=== PATIENT | male | born 1980 | race Caucasian/White ===

== ENCOUNTER 2018-05-01 21:50 | Emergency (ER) | payer MEDICAID, SELFPAY ==
[2018-05-01 21:51] VITALS: BP 139/90; PULSE 84; RESP 16; TEMP 36.6; O2SAT 97; BMI 22.4
--- NOTE | 2018-05-01 22:26 | ED.DCSUM_ITS ---
- ER Visit Summary Date of Service: 05/01/18 Chief Complaint: Depression and anxiety History of Present Illness: The patient is a 38 M with no primary care physician , counselor, or psychiatrist. He reports that he felt depressed and anxious over the course the past 3 weeks. States that he feels like people are watching and following him. He reports that he has had this previously multiple times in the past, but he has been always been able just to ignore it. He denies any auditory or visual hallucinations. No suicidal homicidal ideation. Review of systems: General: No fever, chills, cold sweats. Cardiovascular: No chest pain, palpitations. Respiratory: No cough, shortness of breath, dyspnea on exertion. Gastrointestinal: No abdominal pain, nausea, vomiting, diarrhea, melena, or hematochezia. Genitourinary: No dysuria, frequency, hematuria. Skin: No rash. Neuro: No headache, numbness, weakness. Physical Examination: Vitals: Stable. Afebrile. General: Well-nourished and well-developed. Head: Normocephalic atraumatic. Neck: Supple, no lymphadenopathy. No JVD. Nontender. Cardiovascular: Regular rate and rhythm. No murmurs. Respiratory: No respiratory distress. Clear to auscultation bilaterally. Abdominal: Soft, nontender, nondistended, normal bowel sounds. No guarding, rebound, or peritoneal signs. Back: Nontender. Extremities: Nontender, no edema. Skin: Normal color, no rash. Neurologic: Alert and oriented ?3. Cranial nerves II through XII are intact. Normal strength and sensation. Mental status exam: Patient appears their stated age. Good posture and grooming. Good eye contact. Normal rate, volume, and latency of speech. No suicidal or homicidal ideation. No auditory or visual hallucinations. Flow of thought is logical. Insight and judgment is fair. Emergency Department Course and Treatment: There is no indication for hospitalization. I discussed the patient following up with the counseling center. He did not want me to call and set up an appointment for him. Treatment Plan: Patient will be discharged prescription for Paxil. Instructed to contact the counseling center in follow-up for further evaluation and treatment. Return to emerge department for any thoughts of harming himself or others. Disposition: To home in improved and stable condition. Impression: 1. Depression. 2. Anxiety. This note was generated with [employer] dictation software. It may contain incorrect words, spelling, and punctuation that were not noted in review of the chart prior to signing ED Disposition - Plan for ED Patient: Disposition: Home or Assisted Living Chief Complaint: Anxiety Instructions: ED Depression Prescriptions: Paroxetine HCl [Paxil] 20 mg PO DAILY #30 tablet Referrals: Counseling,Center [GROUP OF PHYSICIANS] - As soon as possible
[2018-05-01 22:38] VITALS: BP 139/90; PULSE 84; RESP 15
== END 2018-05-01 22:38 | disposition home or self-care (01) ==
LOC: ED 22:33
PROVIDERS: Emergency Provider Emergency Medicine
DX: F32.9 Major depressive disorder, single episode, unspecified (principal); F41.9 Anxiety disorder, unspecified; M54.9 Dorsalgia, unspecified; G89.29 Other chronic pain; Z79.899 Other long term (current) drug therapy; F17.200 Nicotine dependence, unspecified, uncomplicated
CPT/HCPCS: 99282